=== PATIENT | male | born 1990 | race African-American/Black ===

== ENCOUNTER 2017-09-15 12:09 | Emergency (ER) | payer OTHER ==
[2017-09-15 12:30] VITALS: RESP 18
--- NOTE | 2017-09-15 12:33 | ED ---
Upper Extremity HPI - General Chief Complaint: Extremity Injury, Upper Stated Complaint: rt ring finger injury Time Seen by Provider: 09/15/17 12:25 Source: patient, RN notes reviewed Mode of arrival: ambulatory Limitations: no limitations - History of Present Illness Initial Comments: This a 26-year-old male with a benign past medical history who states he was playing volleyball about one hour ago when he went up for a shot and some he came down on his right hand. He complains of pain swelling and possibly dislocation was right ring finger. A friend of his splinted it he came here for evaluation. Denies any other injuries at this time. Pain is mild-to- moderate at this time. MD Complaint: Injury to:: right, finger - Related Data Previous Rx's Medication Instructions Recorded Ibuprofen 800 mg PO Q6HR PRN #20 tablet 09/15/17 Allergies Allergy/AdvReac Type Severity Reaction Status Date / Time amoxicillin Allergy Swelling Verified 09/15/17 12:20 Penicillins Allergy Swelling Verified 09/15/17 12:20 Review of Systems ROS Statement: Those systems with pertinent positive or pertinent negative responses have been documented in the HPI. ROS Other: All systems not noted in ROS Statement are negative. Past Medical History Past Medical History: No Reported History History of Any Multi-Drug Resistant Organisms: None Reported Past Surgical History: No Surgical Hx Reported Past Psychological History: No Psychological Hx Reported Smoking Status: Never smoker Past Alcohol Use History: Occasional Past Drug Use History: None Reported General Exam - General Exam Comments Initial Comments: This is a well-developed well-nourished awake alert oriented times 3 male Limitations: no limitations General appearance: alert, in no apparent distress Head exam: Present: atraumatic, normocephalic, normal inspection ENT exam: Present: normal exam Neck exam: Present: normal inspection Extremities exam: Present: tenderness, normal capillary refill, other ( Examination right upper extremity demonstrates evidence of subluxation of the PIP joint of the right ring finger. There is edema seen. Decreased range of motion no other evidence of trauma however. No open wound seen.) Neurological exam: Present: alert, oriented X3, CN II-XII intact Psychiatric exam: Present: normal affect, normal mood Skin exam: Present: warm, dry, intact, normal color. Absent: rash Course Vital Signs 09/15/17 12:20 Temperature 98.5 F Pulse Rate 79 Respiratory 18 Rate Blood Pressure 149/88 O2 Sat by Pulse 99 Oximetry Disposition Clinical Impression: Dislocation, finger closed Disposition: HOME SELF-CARE Condition: Good Instructions: Finger Dislocation (ED) Prescriptions: Ibuprofen 800 mg PO Q6HR PRN #20 tablet PRN Reason: Pain Is patient prescribed a controlled substance at d/c from ED?: No Referrals: Nonstaff,Physician [REFERRING] - 1-2 days Kwesi Fuller MD [Medical Doctor] - 1-2 days
--- NOTE | 2017-09-15 12:50 | XR ---
EXAMINATION TYPE: XR hand complete RT , 3 VIEWS DATE OF EXAM ORDERED: 09/15/2017 HISTORY: Pain. COMPARISON: None. FINDINGS: There is a omari dislocation in the dorsal direction involving the PIP joint of the right ring finger. No definite associated fracture is seen. Post reduction views would BE suggested. IMPRESSION: OMARI DORSAL DISLOCATION OF THE PIP JOINT OF THE RIGHT RING FINGER.
[2017-09-15] MEDS ORDERED: IBUPROFEN 800 MG TAB PO STA (13:29)
--- NOTE | 2017-09-15 14:05 | XR ---
EXAMINATION TYPE: XR hand limited RT , 2 VIEWS DATE OF EXAM ORDERED: 09/15/2017 HISTORY: Post reduction. COMPARISON: Study of earlier today. FINDINGS: The patient's dislocation of the PIP joint of the ring finger has been reduced. Anatomic r elationships now appear normal. No definite fracture is seen. IMPRESSION: SATISFACTORY POST REDUCTION VIEWS OF THE RIGHT HAND.
[2017-09-15 14:12] VITALS: BP 167/96; PULSE 72; TEMP 98.2
--- NOTE | 2017-09-18 16:08 | ED ---
Disposition Clinical Impression: Dislocation, finger closed Disposition: HOME SELF-CARE Condition: Good Instructions: Finger Dislocation (ED) Prescriptions: Ibuprofen 800 mg PO Q6HR PRN #20 tablet PRN Reason: Pain Is patient prescribed a controlled substance at d/c from ED?: No Referrals: Nonstaff,Physician [REFERRING] - 1-2 days Kwesi Fuller MD [Medical Doctor] - 1-2 days Procedures - Orthopedic Joint Reduction Joint #1 Time Out Performed: Yes Joint #2 Time Out Performed: Yes Side: right Joint Reduction Location: finger Analgesia: other (Ice water soak) Shoulder Technique Used (if applicable): traction/counter-traction Post-Reduction Neuro Exam: intact Post-Reduction Vascular Exam: intact Post Reduction X-Ray Obtained: Yes Post Reduction X-Ray Results: reduced (I did perform reduction of the right ring finger PIP joint subluxation. Patient tolerated this well post x-ray showed no evidence of obvious fracture.)
== END 2017-09-15 14:11 | disposition home or self-care (01) ==
LOC: EC 12:09
DX: S63.284A Dislocation of proximal interphalangeal joint of right ring finger, initial encounter (principal); Z88.0 Allergy status to penicillin; W21.06XA Struck by volleyball, initial encounter; Y93.68 Activity, volleyball (beach) (court)
CPT/HCPCS: 26770; 99283